=== PATIENT | female | born 1990 | race Caucasian/White ===

== ENCOUNTER 2020-01-23 23:22 | Emergency (ER) | payer OTHER ==
--- NOTE | 2020-01-23 23:28 | PDOC ---
History of Present Illness - General Chief Complaint: Chest Pain Stated Complaint: CHEST PAIN Time Seen by Provider: 01/23/20 23:27 History Source: Patient - History of Present Illness Initial Comments: 01/24/20 00:09 29F w/hx recent on 01/[address] [facility], complicated by chorioamnionitis managed with course of ancef/clindamycin p/w one day of L sided chest pain, palpitations, and ongoing LE swelling. She denies any complications during the , and denies any HTN during the . No cardiac history, she denies smoking, etoh or drug use. She denies weakness, sob, vomiting, confusion, or difficulty breathing. Past History - Medical History Allergies/Adverse Reactions: Allergies Allergy/AdvReac Type Severity Reaction Status Date / Time No Known Allergies Allergy Verified 01/23/20 23:30 Home Medications: Ambulatory Orders Nitrofurantoin Monohyd/M-Cryst [Macrobid -] 100 mg PO BID #14 capsule 01/24/20 Review of Systems - Review of Systems Able to Perform ROS?: Yes Comments:: GENERAL/CONSTITUTIONAL: No fever or chills. No weakness. HEAD, EYES, EARS, NOSE AND THROAT: No change in vision. No ear pain or discharge. No sore throat. CARDIOVASCULAR: chest pain, palpitations. No shortness of breath RESPIRATORY: No cough, wheezing, or hemoptysis. GASTROINTESTINAL: No nausea, vomiting, diarrhea or constipation. GENITOURINARY: No dysuria, frequency, or change in urination. MUSCULOSKELETAL: No joint or muscle swelling or pain. No neck or back pain. SKIN: No rash NEUROLOGIC: No headache, vertigo, loss of consciousness, or change in strength/sensation. ENDOCRINE: No increased thirst. No abnormal weight change HEMATOLOGIC/LYMPHATIC: LE swelling. No anemia, easy bleeding, or history of blood clots. ALLERGIC/IMMUNOLOGIC: No hives or skin allergy. *Physical Exam - Physical Exam GENERAL: Awake, alert, and fully oriented, in no acute distress HEAD: No signs of trauma, normocephalic, atraumatic EYES: PERRLA, EOMI, sclera anicteric, conjunctiva clear ENT: Auricles normal inspection, hearing grossly normal, nares patent, oropharynx clear without exudates. Moist mucosa NECK: Normal ROM, supple, no lymphadenopathy, JVD, or masses LUNGS: No distress, speaks full sentences, clear to auscultation bilaterally HEART: Regular rate and rhythm, normal S1 and S2, no murmurs, rubs or gallops, peripheral pulses normal and equal bilaterally. ABDOMEN: Mild tenderness along incision site, no drainage or surrounding erythema. Soft, otherwise nontender, normoactive bowel sounds. No guarding, no rebound. No masses EXTREMITIES : 1+ bilateral LE edema. Normal inspection, Normal range of motion. No clubbing or cyanosis NEUROLOGICAL: Cranial nerves II through XII grossly intact. Normal speech, normal gait, no focal sensorimotor deficits SKIN: Warm, Dry, normal turgor, no rashes or lesions noted Heart Score/ECG Review - History History: Slightly suspicious - Electrocardiogram EKG: Normal - Age Age: </= 45 - Risk Factors Based on the list above the patient has:: No risk factors known - Troponin Troponin: </= normal limit - Score Heart Score - Total: 0 ED Treatment Course - LABORATORY CBC & Chemistry Diagram: 01/24/20 00:10 01/24/20 00:10 Medical Decision Making - Medical Decision Making 29F w/recent complicated by chorioamnionitis p/w acute onset chest pain, palpitations, tachycardic with mild LE edema on exam. PE unlikely but possible given recent . Ddx pre-eclampsia, HELLP syndrome, ACS, electrolyte derangement, hypoglycemia. Plan: CBC CMP EKG CXR US DVT bilateral LE PT/INR, APTT Acetaminophen BNP Troponin I, 3hr repeat Dispo: Likely discharge --- Troponin I - negative US - no DVT noted Plan for CTA Chest to r/o PE, as well as repeat troponin --- CTA - no PE or other acute process visualized Troponin I - negative Alk phos - 188 Urine protein - 22 Case discussed with patient's OB team at [facility] due to concern for possible pre-eclampsia. They will see her at follow up appointment in the morning @1030. Plan for discharge with close OB follow up. Discharge - Discharge Information Problems reviewed: Yes Clinical Impression/Diagnosis: Palpitations Condition: Stable Disposition: HOME - Admission No - Additional Discharge Information Prescriptions: Nitrofurantoin Monohyd/M-Cryst [Macrobid -] 100 mg PO BID #14 capsule - Follow up/Referral - Patient Discharge Instructions Patient Printed Discharge Instructions: DI for Atypical Chest Pain Additional Instructions: Usted fue evaluada en la patti de urgencias por palpitaciones y dolor de pecho. Jeni niveles de carrie estaban normales, y dye dye CT scan estaba normal tambien. Asegurese que vas a dye carli con dye obstetra hoy a las 10:30 de la [facility]ana [facility] Regresa a la patti de urgencias si empiezas a tener dificultad respirando, dolor de pecho ricci, fiebres altos, o dolor abdominal. Print Language: ARABIC - Post Discharge Activity
[2020-01-23 23:56] VITALS: BMI 29.2
--- NOTE | 2020-01-24 00:35 | PDOC ---
Documentation entered by Olegario Gutiérrez SCRIBE, acting as scribe for Cynthia Malloy DO. Cynthia Malloy DO: This documentation has been prepared by the Marla bullock Xhesika, SCRIBE, under my direction and personally reviewed by me in its entirety. I confirm that the documentation accurately reflects all work, treatment, procedures, and medical decision making performed by me. Attending Attestation - Resident Resident Name: MargiJayme - ED Attending Attestation I have performed the following: I have examined & evaluated the patient, The case was reviewed & discussed with the resident, I agree w/resident's findings & plan, Exceptions are as noted - HPI HPI: 01/23/20 23:33 The patient is a 29y/o F with no PMH who presents to the ED for L sided chest pain and dizziness. Pt states she had a uncomplicated but a complicated delivery by [facility] for which she received ancef clindamycin for 24hr on 01/18/20 (at [facility]). Pt states she was d/c Tuesday with baby. Pt did not have elevated BP while in the hospital. Pt reports associated LE swelling, nausea and pain along her incision. The patient denies fever, chills, cough, vomiting, diarrhea and constipation. Denies dysuria, frequency, urgency and hematuria. Allergies: NKDA - Physicial Exam PE: 01/24/20 00:13 GENERAL: Awake, alert, and fully oriented, in no acute distress HEAD: No signs of trauma NECK: Normal ROM, supple, no lymphadenopathy, JVD, or masses LUNGS: Breath sounds equal, clear to auscultation bilaterally. No wheezes, and no crackles HEART: +tachy, normal S1 and S2, no murmurs, rubs or gallops ABDOMEN: +gravid, +mild tenderness along incision. Incision is clean, dry, healing properly, no drainage or surrounding errythema. normoactive bowel sounds. No guarding, no rebound. No masses EXTREMITIES:1+ pitting edema BLE. Normal range of motion. No clubbing or cyanosis. No cords, erythema, or tenderness NEUROLOGICAL: Cranial nerves II through XII grossly intact. SKIN: Warm, Dry, normal turgor, no rashes lesions noted. - Medical Decision Making 01/24/20 00:30 a/p: 29yo s/p c section delivery at [facility] on 01/17 complicated by chorio treated by flor and pinky -pt dc on Tuesday -pt tonight with calderon, cp/palpitaitons/nausea/le edema -no pleuritic cp -concern for post pre-eclampsia (had bp 146/100 at home) vs acs vs cardiomyopathy -lower suspicion for PE given no pleuritic component, but will ultrasound legs given swelling -will send labs, cxr, ekg, duplex ultrasound -will monitor and reassess 01/24/20 01:03 pt with slighly elevated wbc, hgb 8 ua dirty sample, will treat uti, culture pending 01/24/20 01:14 dvt study neg 01/24/20 02:03 pt pending cta chest for poss pe and repeat trop at 3am if both neg ok to dc to home with oral abx for uti and follow up with her [employer] no elevated lft or low plts Discharge - Discharge Information Problems reviewed: Yes Clinical Impression/Diagnosis: Palpitations Condition: Stable - Additional Discharge Information Prescriptions: Nitrofurantoin Monohyd/M-Cryst [Macrobid -] 100 mg PO BID #14 capsule - Follow up/Referral - Patient Discharge Instructions - Post Discharge Activity
[2020-01-24 00:44] LABS: BASO % 0.8 % (0-2.0); EOS % 1.6 % (0-4.5); HEMOGLOBIN 8.8 GM/dL (10.7-15.3); LYMPH % 18.6 % (8-40); MCH 28.9 pg (25.7-33.7); MCHC 32.4 g/dl (32.0-36.0); MEAN CELL VOLUME 89.1 fl (80-96); MEAN PLT VOLUME 9.5 fl (7.5-11.1); MONO % 8.4 % (3.8-10.2); NEUT % 70.6 % (42.8-82.8); PLATELET COUNT 323 K/MM3 (134-434); RBC 3.03 M/mm3 (3.60-5.2); RDW 16.5 % (11.6-15.6); WHITE BLOOD COUNT 14.8 K/mm3 (4.0-10.0)
[2020-01-24 00:47] LABS: EPI CELLS >36 /uL (0-25.1); HYALINE CASTS 2 /uL (0-3.1); PH,URINE 7.5 (5.0-8.0); URINE APPEARANCE CLEAR; URINE BACTERIA 11 /uL (0-1359); URINE BILIRUBIN NEGATIVE (NEGATIVE); URINE COLOR YELLOW; URINE GLUCOSE (UA) NEGATIVE (NEGATIVE); URINE KETONE NEGATIVE (NEGATIVE); URINE LEUK ESTERASE 2+ (NEGATIVE); URINE NITRITE NEGATIVE (NEGATIVE); URINE PROTEIN TRACE (NEGATIVE); URINE RBC 27 /uL (0-23.9); URINE UROBILINOGEN 0.2 mg/dL (0.2-1.0); URINE WBC 164 /uL (0-25.8)
[2020-01-24 00:53] LABS: INR 0.93 (0.83-1.09)
[2020-01-24 00:56] LABS: ACTIVATED PTT 26.9 SECONDS (25.2-36.5)
[2020-01-24 01:06] LABS: ALBUMIN 2.9 g/dl (3.4-5.0); ALK PHOS 188 U/L (45-117); ANION GAP 8 MMOL/L (8-16); BILIRUBIN,TOTAL 0.5 mg/dL (0.2-1); BLOOD UREA NITROGEN 13.4 mg/dL (7-18); CALCIUM 9.6 mg/dL (8.5-10.1); CHLORIDE 106 mmol/L (98-107); CO2 24 mmol/L (21-32); CREATININE 0.6 mg/dL (0.55-1.3); GLUCOSE,RANDOM 95 mg/dL (74-106); N-TERMINAL BNP 12.3 pg/ml (5-125); POTASSIUM 4.4 mmol/L (3.5-5.1); SGOT/AST 34 U/L (15-37); SGPT/ALT 37 U/L (13-61); SODIUM 139 mmol/L (136-145); TOT PROT 6.6 g/dl (6.4-8.2)
[2020-01-24] MEDS ORDERED: LACTATED RINGERS SOLUTION 1000 ML INFUS.BAG IV ONE (01:08)
[2020-01-24] MEDS ORDERED: ACETAMINOPHEN 1000 MG/100 ML VIAL (NON FORMULARY) IVPB ONE (01:09)
[2020-01-24] MEDS ORDERED: METOCLOPRAMIDE HCL INJECTION 10 MG/2 ML VIAL IVPUSH ONE (01:09)
[2020-01-24] MEDS ORDERED: NITROFURANTOIN MACROCRYSTAL 50 MG CAPSULE (FP) PO SCH (01:15)
[2020-01-24] MEDS ORDERED: NITROFURANTOIN MACROCRYSTAL 50 MG CAPSULE (FP) ONE (01:30)
[2020-01-24] MEDS ORDERED: ACETAMINOPHEN INJECTION 100 ML IVPB ONE (01:30)
[2020-01-24] MEDS ORDERED: METOCLOPRAMIDE HCL INJECTION 10 MG/2 ML VIAL ONE (01:30)
[2020-01-24 02:04] LABS: ANISOCYTOSIS 2+; MACROCYTOSIS 2+; PLATELET ESTIMATE NORMAL
[2020-01-24 04:14] VITALS: BP 99/57; PULSE 84; TEMP 98.3
[2020-01-24 04:38] LABS: 24 HR URINE CREATININE < 13.0 mg/dL (30-150)
--- NOTE | 2020-01-24 14:05 | EKG ---
Test Reason : Blood Pressure : / mmHG Vent. Rate : 105 BPM Atrial Rate : 105 BPM P-R Int : 136 ms QRS Dur : 066 ms QT Int : 328 ms P-R-T Axes : 041 046 036 degrees QTc Int : 433 ms SINUS TACHYCARDIA OTHERWISE NORMAL ECG NO PREVIOUS ECGS AVAILABLE Confirmed by KELI HARRIS MD ([id number]) on 01/24/2020 2:05:04 PM Referred By: Confirmed By:KELI HARRIS MD
== END 2020-01-24 05:20 | disposition home or self-care (01) ==
LOC: JER 23:22
PROC: 3E033GC Introduction of Other Therapeutic Substance into Peripheral Vein, Percutaneous Approach (ICD-10-PCS; principal; 2020-01-24)
DX: R00.2 Palpitations (principal)
CPT/HCPCS: 36415; 71275-TC; 80053; 81003; 82550; 82570; 83880; 84156; 84443; 84484; 85025; 85610; 85730; 87086; 93005; 93010; 93970-TC; 99285-25; J0131